=== PATIENT | male | born 1995 | race African-American/Black ===

== ENCOUNTER 2019-09-23 17:02 | Inpatient (IN) | payer OTHER ==
[~2019-09-23] VITALS: Ht 175.3 cm; Wt 75.9 kg
[2019-09-23 18:06] LABS: HEMATOCRIT 45.9 % (42.0-52.0); HEMOGLOBIN 15.9 g/dl (13.5-17.5); MEAN CORPUSCULAR HEMOGLOBIN 30.5 pg (27.0-33.0); MEAN CORPUSCULAR HGB CONC 34.6 g/dl (32.0-36.5); MEAN CORPUSCULAR VOLUME 88.1 fl (80.0-96.0); PLATELET COUNT, AUTOMATED 210 10^3/uL (150-450); RED BLOOD COUNT 5.21 10^6/uL (4.30-6.10); WHITE BLOOD COUNT 5.1 10^3/uL (4.0-10.0)
[2019-09-23 18:42] LABS: AMPHETAMINES LEVEL URINE NEGATIVE (NEGATIVE); BARBITURATES URINE NEGATIVE (NEGATIVE); BENZODIAZEPINES URINE NEGATIVE (NEGATIVE); CANNABINOIDS URINE NEGATIVE (NEGATIVE); COCAINE METABOLITE URINE NEGATIVE (NEGATIVE); METHADONE URINE NEGATIVE (NEGATIVE); OPIATES URINE NEGATIVE (NEGATIVE); PHENCYCLIDINE URINE NEGATIVE (NEGATIVE)
[2019-09-23 18:52] LABS: ACETAMINOPHEN LEVEL < 2.0 UG/ML (10.0-30.0); ALBUMIN 4.1 GM/DL (3.2-5.2); ALT/SGPT 37 U/L (12-78); BILIRUBIN,DIRECT 0.3 MG/DL (0.0-0.2); BILIRUBIN,TOTAL 0.9 MG/DL (0.2-1.0); BLOOD UREA NITROGEN 12 MG/DL (7-18); CALCIUM LEVEL 9.6 MG/DL (8.5-10.1); CARBON DIOXIDE LEVEL 31 MEQ/L (21-32); CHLORIDE LEVEL 103 MEQ/L (98-107); CREATININE FOR GFR 1.23 MG/DL (0.70-1.30); ETHYL ALCOHOL (ETHANOL) 0.004 % (0.000-0.010); GLOMERULAR FILTRATION RATE > 60.0 (>60); GLUCOSE, FASTING 78 MG/DL (70-100); POTASSIUM SERUM 4.1 MEQ/L (3.5-5.1); SALICYLATE LEVEL < 1.7 MG/DL (5.0-30.0); SODIUM LEVEL 138 MEQ/L (136-145); TOTAL PROTEIN 7.5 GM/DL (6.4-8.2)
[2019-09-23] MEDS ORDERED: OLANZapine ORAL DISINTEGRATING TAB 5MG PO PRN (21:15)
[2019-09-23] MEDS ORDERED: MOM 30ML SUSPENSION UDC PO PRN (21:15)
[2019-09-23] MEDS ORDERED: IBUPROFEN 400 MG TAB PO PRN (21:15)
[2019-09-23] MEDS ORDERED: traZODone 50 MG TAB PO PRN (21:15)
[2019-09-23] MEDS ORDERED: MAALOX 30 ML SUSP *UDC PO PRN (21:15)
[2019-09-23 21:30] VITALS: BP 113/75
[2019-09-24 06:21] VITALS: BP 108/55
[2019-09-24] MEDS ORDERED: INFLUENZA QUADRIVALENT PF VACCINE 0.5ML SYRINGE (90686) IM ONE (09:00)
[2019-09-24] MEDS: NICOTINE 21MG/24HR 1 EA TRANSDERMAL TD SCH (09:24)
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
[2019-09-24 15:39] VITALS: BP 108/62
--- NOTE | 2019-09-24 15:57 | HPEPDOC ---
General Date of Admission Sep 23, 2019 at 21:23 Date of Service: Sep 24, 2019 Attending Physician: RUDI HUANG MD Chief Complaint The patient is a 24-year-old male admitted with a reason for visit of Unspecified Depressive Disorder. Source: Patient Exam Limitations: No limitations Timing/Duration: Other (waxing and waning) Severity: Moderate Associated Symptoms: Other (Depression and passive suicidal thoughts) History of Present Illness 24 yo man with a history of episodic depressive symptoms who was brought in to the ED after expressive passive suicidal thoughts to his direct upline at work, he is active . He reports no specific inciting event but reports that he sometimes will have passive suicidality when he feels like he has done something wrong. He otherwise has no medical history and has been physically healthy. In the ED he was hemodynamically stable and basic labs were grossly normal and he was admitted to the [facility] for evaluation and treatment. Home Medications No Active Prescriptions or Reported Meds Allergies Coded Allergies: No Known Allergies (Unverified , 09/23/19) Past Medical History Medical History No chronic conditions Surgical History None Family History Significant Family History: No pertinent family hx Social History * Smoker: current smoker Alcohol: occationally Drugs: denies Recent Travel/Sick Contacts: Reports: Recent travel Psychosocial History: Decreased mood, Suicidal thoughts Active A-FIB/CHADSVASC A-FIB History Current/History of A-Fib/PAF?: No Current PO Anticoag Therapy: No Age/Risk Factor Scoring CHADSVASC: CHADSVASC Response (Comments) Value Age Risk Factor Age < 65 years old 0 Gender Risk Factor Male 0 Hx of CHF No 0 Hx of HTN No 0 Hx of Stroke/TIA/or VTE No 0 Hx of Diabetes No 0 Hx of Vascular Disease No 0 Total 0 Treatment Treatment ordered: NONE Reason Anticoagulant not given: Not indicated/[id number] Review of Systems Constitutional: Denies: Chills, Fever, Night Sweats Eyes: Denies: Pain, Vision change ENT: Denies: Head Aches, Ear Pain, Dysphagia Skin: Denies: Rash, Lesions, Breakdown Pulmonary: Denies: Dyspnea, Cough Cardiovascular: Denies: Chest Pain, Palpitations, Orthopnea, Paroxysmal Noc. Dyspnea, Lt Headedness Gastrointestinal: Denies: Nausea, Vomiting, Abdominal Pain, Diarrhea Genitourinary: Denies: Dysuria, Frequency, Incontinence, Retention Hematologic: Denies: Bruising, Bleeding Excessively Endocrine: Denies: Polydipsia, Polyphagia, Polyuria, Heat Intolerance, Cold Intolerance, Other Endocrine Sx Musculoskeletal: Denies: Neck Pain, Back Pain, Joint Pain, Muscle Pain, Spasms Neurological: Denies: Weakness, Numbness, Change in speech, Confusion Psych: Reports: Depression, Other Psych (Thoughts of without terry thoughts of self harm); Denies: Mood Normal, Memory Issues Physical Examination General Exam: Positive: Alert, No Acute Distress Eye Exam: Positive: PERRLA, Conjunctiva & lids normal, EOMI; Negative: Sclera icteric ENT Exam: Positive: Atraumatic, Mucous membr. moist/pink, Pharynx Normal Neck Exam: Positive: Supple; Negative: JVD, thyromegaly Chest Exam: Positive: Clear to auscultation, Normal air movement Heart Exam: Positive: Rate Normal, Regular Rhythm, Normal S1, Normal S2; Negative: Murmurs, Rubs Abdomen Exam: Positive: Normal bowel sounds, Soft; Negative: Tenderness, Hepatospenomegaly Extremity Exam: Positive: Normal pulses; Negative: Clubbing, Cyanosis, Edema Skin Exam: Positive: Nl turgor and temperature; Negative: Breakdown, Lesion Neuro Exam: Positive: Normal Gait, Normal Speech, Strength at 5/5 X4 ext, Cranial Nerves 3-12 NL Psych Exam: Positive: Mental status NL, Mood NL, Memory Intact, Oriented x 3 Vital Signs Vital Signs Date Time Temp Pulse Resp B/P (MAP) Pulse Ox O2 Delivery O2 Flow Rate FiO2 09/24/19 15:39 97.6 63 16 108/62 (77) 09/23/19 21:30 Room Air 09/23/19 17:03 100 Laboratory Data Labs 24H Laboratory Tests 2 09/23/19 17:46: Nucleated Red Blood Cells % (auto) 0.0, Anion Gap 4L, Glomerular Filtration Rate > 60.0, Calcium Level 9.6, Total Bilirubin 0.9, Direct Bilirubin 0.3H, Aspartate Amino Transf (AST/SGOT) 29, Alanine Aminotransferase (ALT/SGPT) 37, Alkaline Phosphatase 92, Total Protein 7.5, Albumin 4.1, Albumin/Globulin Ratio 1.21, Thyroid Stimulating Hormone (TSH) 1.810, Salicylates Level < 1.7L, Acetaminophen Level < 2.0L, Ethyl Alcohol Level 0.004 09/23/19 18:06: Urine Opiates Screen NEGATIVE, Urine Methadone Screen NEGATIVE, Urine Barbiturates Screen NEGATIVE, Urine Phencyclidine Screen NEGATIVE, Urine Amphetamines Screen NEGATIVE, Urine Benzodiazepines Screen NEGATIVE, Urine Cocaine Metabolite Screen NEGATIVE, Urine Cannabinoids Screen NEGATIVE CBC/BMP Laboratory Tests 09/23/19 17:46 Assessment/Plan 24 yo man who is admitted to the [facility] for expressing passive suicidal thoughts, for whom medicine is consulted for medical evaluation. He is physically doing well with no complaints and had grossly normal labs. Will sign off at this time and defer mental health evaluation and treatment to the primary team. Plan: Smoking: -continue nicotine patch -expressed commitment to stopping smoking and would be agreeable to continuing the patch as an outpatient Plan / VTE VTE Prophylaxis Ordered?: No VTE Exclusion Mechanical Proph: Low Risk for VTE VTE Exclusion Pharmacological: At Low Risk for VTE RUDI HUANG MD Sep 24, 2019 15:57
[2019-09-25 06:03] VITALS: BP 110/68
[2019-09-25] MEDS: NICOTINE 21MG/24HR 1 EA TRANSDERMAL TD SCH (09:29)
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
--- NOTE | 2019-09-25 09:46 | MHIPNPDOC ---
[facility] Progress Note Progress Note DATE OF SERVICE: 09/25/19 HISTORY: Patient is a 24 -year-old , male, with no previous psych history who was brought to the ED by his Maddie after pt endorsed SI 3 days ago. Pt stated in the ED that 3 days ago there was a alliance party for his [employer] unit and while there he made suicidal statements. Stated he remembers talking with his Maddie that evening and made a statement about not being yet. Pt that that he was intoxicated with alcohol at the time he made the statements and left the alliance party. Pt stated in the ED that he wasn't thinking about the statements he made at the alliance party until his Maddie contacted him and asked him to go to [facility] for an evaluation. Pt stated in the ED that he developed depression 1yr ago and that it's increased for reason unknown to him. He endorsed fleeting SI in the ED with no plan and stated "I could never go through with it" b/c "I am afraid of hurting everyone that loves me" (family and friends). Pt seen and states he's here b/c he remembers saying "at least I'm not yet" while he was intoxicated at a alliance party 3 days ago. States he doesn't remember anything else from the night. 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 States that he feels "fine ... just like a normal day." Denies he feels depressed, anxious, or suicidal. State he drinks alcohol twice a week 5-6 drink total weekly. States he doesn't think he needs to start an antidepressant but is very interesting in attending group therapy here and outpatient individual therapy at [facility] once he's d/c. Denies currently SI/HI, hallucinations, delusions. Feels safe here. VITAL SIGNS: See below. NEW TEST RESULTS: See below. CURRENT MEDICATIONS: See below. MENTAL STATUS EXAMINATION: General Appearance: well groomed, appears stated age, hospital scrubs/clothing Build: average Demeanor: average Eye Contact: average Activity: average Behavior: cooperative Speech: clear, spontaneous, reg/rate,rhythm,volume Mood: euthymic Mood "good" Affect: full, appropriate, congruent Thought Process: logical/linear, intact Thought Content (Delusions): none reported, denies SI, HI, AVH Thought Content (Other): none reported, appropriate Thought Content (Aggressive): none reported Perception (Hallucinations): none reported Perception (Other): none reported Cognition (Impairment of): none reported Cognition(Intelligence Est.): average Oriented: Awake, Alert, Oriented times three Insight: fair Judgment: Fair Psychosis: Denies DIAGNOSES: Adjustment d/o with depressed mood Alcohol use d/o ASSESSMENT:Pt seen and states that his mood is "good". States he spoke with his parents on the phone yesterday and his father was very understanding and supportive, his mother just worried for him. States he has made plans with his father to take some leave from the [employer] so he can visit his father in [place] and attend druze with his father who is spiritual. States he had difficutly sleeping last night mostly do to anticipation anxiety due to thinking of everything he wanted to do in [place] when visiting his father. He is attending groups and finding them helpful. He denies SI/HI, hallucinations, delusions. Pt feels safe here. MANAGEMENT PLAN: d/c tomorrow no meds TIME SPENT:30 minutes. Vital Signs Vital Signs Date Time Temp Pulse Resp B/P (MAP) Pulse Ox O2 Delivery O2 Flow Rate FiO2 09/25/19 06:03 98.0 63 16 110/68 (82) 09/23/19 21:30 Room Air 09/23/19 17:03 100 Current Medications Current Medications Medications (Trade) Dose Ordered Sig/Laura Route PRN Reason Start Time Stop Time Status Last Admin Dose Admin Al Hydrox/Mg Hydrox/Simethicone (Mylanta) 30 ml Q4HP PRN PO HEARTBURN/INDIGESTION 09/23/19 21:15 Home Med (Med Rec Complete!) ASDIRECTED XX 09/23/19 21:45 09/23/19 21:45 DC Ibuprofen (Advil) 400 mg Q6HP PRN PO PAIN 09/23/19 21:15 Magnesium Hydroxide (Milk Of Magnesia) 30 ml DAILYPRN PRN PO CONSTIPATION 09/23/19 21:15 Nicotine (Nicoderm Cq 21mg) 1 patch DAILY TD 09/24/19 09:00 09/24/19 09:24 Olanzapine (ZyPREXA ZYDIS) 5 mg Q4HP PRN PO AGITATION 09/23/19 21:15 Trazodone HCl (Desyrel) 50 mg QHSP PRN PO INSOMNIA 09/23/19 21:15 Allergies Coded Allergies: No Known Allergies (Unverified , 09/23/19) KEVIN RAMÍREZ DO Sep 25, 2019 9:06 am
[2019-09-25 17:10] VITALS: BP 124/74
[2019-09-26 05:55] VITALS: BP 111/68
[2019-09-26] MEDS: NICOTINE 21MG/24HR 1 EA TRANSDERMAL TD SCH (09:00)
== END 2019-09-26 12:50 | disposition home or self-care (01) | DRG 881 ==
LOC: M ED 17:02 → M ED INP 21:23 → M PSY 21:25
PROVIDERS: ADMIT Psychiatry & Neurology Psychiatry; ATTEND Psychiatry & Neurology Addiction Medicine
DX: F43.21 Adjustment disorder with depressed mood (principal); F10.10 Alcohol abuse, uncomplicated; F17.200 Nicotine dependence, unspecified, uncomplicated